=== PATIENT | female | born 1980 | race American Indian/Alaskan Native ===

== ENCOUNTER 2019-07-03 14:15 | Emergency (ER) | payer SELFPAY ==
--- NOTE | 2019-07-03 16:48 | Event Note ---
ED Screening Note Date of service: 07/03/19 Time: 16:44 ED Screening Note: This is a 39 y.o. F. that presents to the ER with right sided abdominal pain and chest discomfort for 2 days. Reports similar symptoms last week and seen at [facility]. Patient states she diagnosed with food poisoning. She was prescribed Maalox and zofran which she is taking with no change in symptoms. This initial assessment/diagnostic orders/clinical plan/treatment(s) is/are subject to change based on patients health status, clinical progression and re- assessment by fellow clinical providers in the ED. Further treatment and workup at subsequent clinical providers discretion. Patient/guardian urged not to elope from the ED as their condition may be serious if not clinically assessed and managed. Initial orders include: Labs and CT of abdomen
[2019-07-03 18:07] LABS: Basophils # (Auto) 0.1 K/mm3 (0.0-0.1); Eosinophils # (Auto) 0.2 K/mm3 (0.0-0.4); Eosinophils % (Auto) 1.8 % (0.0-4.3); Hematocrit 37.3 % (30.3-42.9); Hemoglobin 12.1 gm/dl (10.1-14.3); Lymphocytes # (Auto) 2.1 K/mm3 (1.2-5.4); Lymphocytes % (Auto) 24.4 % (13.4-35.0); Mean Corpuscular HGB Conc 33 % (30-34); Mean Corpuscular Volume 88 fl (79-97); Monocytes # (Auto) 0.9 K/mm3 (0.0-0.8); Platelet Count 351 K/mm3 (140-440); Red Blood Count 4.26 M/mm3 (3.65-5.03)
[2019-07-03 18:33] LABS: Bilirubin,Urine NEG (Negative); Color,Urine Yellow (Yellow); Mucus,Urine FEW /HPF; Protein,Urine <15 mg/dL mg/dL (Negative); Urobilinogen,Urine < 2.0 mg/dL (<2.0)
[2019-07-03 18:36] LABS: Blood,Urine MOD (Negative)
[2019-07-03 18:36] LABS: Alanine Aminotransferase 12 units/L (7-56); Albumin 4.1 g/dL (3.9-5); BUN/Creatinine Ratio 13; Blood Urea Nitrogen 8 mg/dL (7-17); Calcium 9.5 mg/dL (8.4-10.2); Hemolysis Index 10
[2019-07-03] MEDS ORDERED: ONDANSETRON 4 MG/2 ML INJ IV ONE (19:15)
[2019-07-03] MEDS ORDERED: SODIUM CHLORIDE 0.9% 1000 ML 1,000 ML IV ONE (19:15)
[2019-07-03] MEDS ORDERED: KETOROLAC 30 MG/1 ML INJ IV ONE (19:18)
--- NOTE | 2019-07-03 19:24 | Cat Scan Report ---
CT abdomen pelvis w con INDICATION / CLINICAL INFORMATION: right sided abdominal pain. TECHNIQUE: All CT scans at this location are performed using CT dose reduction for ALARA by means of automated e xposure control. COMPARISON: None available. FINDINGS: Lung bases are clear. ABDOMEN: Small hiatal hernia is present. The gallbladder is normal. A paramedian ventral hernia containing a nonobstructed loop of small bowel is identified. No other small bowel abnormalities. Pelvis: The appendix is normal. There is an enlarged fibroid uterus. No inflammatory changes or dependent fluid collections are seen in the pelvis. IMPRESSION: 1. Paramedian ventral hernia containing unobstructed small bowel. 2. Enlarged fibroid uterus. 3. Small hiatal hernia. Signer Name: David Mcallister MD Signed: 07/03/2019 7:19 PM Workstation Name: [id number]
--- NOTE | 2019-07-03 20:33 | Emergency Department Report ---
ED Abdominal Pain HPI - General Chief Complaint: Abdominal Pain Stated Complaint: CHEST PAIN/STOMACH PAIN Time Seen by Provider: 07/03/19 16:44 Source: patient Mode of arrival: Ambulatory Limitations: No Limitations - History of Present Illness Initial Comments: This is a 39 y.o. F. that presents to the ER with right sided abdominal pain for 3 weeks evaluated by [place] emergency department advised that she had gastritis. Patient has not follow-up with GI however. Patient now states that abdominal pain is lingering. There is no nausea vomiting pain is 4 over 5 burning aching . Patient is tolerating by mouth intake patient making normal amount of bowel movements and voiding without difficulty. There's no fevers no chills. MD Complaint: abdominal pain Onset/Timin -: week(s) Location: periumbilical Radiation: LLQ Migration to: no migration Severity: moderate Severity scale (0 -10): 5 Quality: cramping, aching Improves With: nothing Worsens With: nothing Associated Symptoms: denies: fever, chills, constipation, dysuria - Related Data LMP (females 10-50): last week Previous Rx's Medication Instructions Recorded Last Taken Type Dicyclomine [Bentyl] 10 mg PO QID PRN #30 capsule 07/03/19 Unknown Rx Famotidine [Pepcid] 20 mg PO BID #60 tablet 07/03/19 Unknown Rx Naproxen [EC-Naprosyn] 500 mg PO BID PRN #30 tablet. 07/03/19 Unknown Rx Ondansetron [Zofran Odt] 4 mg PO Q8HR #12 tab.rapdis 07/03/19 Unknown Rx Allergies Allergy/AdvReac Type Severity Reaction Status Date / Time No Known Allergies Allergy Unverified 07/03/19 16:49 ED Review of Systems ROS: Stated complaint: CHEST PAIN/STOMACH PAIN Other details as noted in HPI Constitutional: denies: chills, fever Eyes: denies: eye pain, eye discharge, vision change ENT: denies: ear pain, throat pain Respiratory: denies: cough, shortness of breath, wheezing Cardiovascular: denies: chest pain, palpitations Endocrine: no symptoms reported Gastrointestinal: as per HPI, abdominal pain. denies: nausea, vomiting, diarrhea, constipation, hematemesis, melena, hematochezia Genitourinary: denies: urgency, dysuria, frequency, hematuria, discharge Musculoskeletal: denies: back pain, joint swelling, arthralgia Skin: denies: rash, lesions Neurological: denies: headache, weakness, paresthesias Psychiatric: denies: anxiety, depression Hematological/Lymphatic: denies: easy bleeding, easy bruising ED Past Medical Hx - Social History Smoking Status: Never Smoker Substance Use Type: None - Medications Home Medications: Home Medications Medication Instructions Recorded Confirmed Last Taken Type Dicyclomine [Bentyl] 10 mg PO QID PRN #30 capsule 07/03/19 Unknown Rx Famotidine [Pepcid] 20 mg PO BID #60 tablet 07/03/19 Unknown Rx Naproxen [EC-Naprosyn] 500 mg PO BID PRN #30 tablet.dr 07/03/19 Unknown Rx Ondansetron [Zofran Odt] 4 mg PO Q8HR #12 tab.rapdis 07/03/19 Unknown Rx ED Physical Exam - General Limitations: No Limitations General appearance: alert, in no apparent distress - Head Head exam: Present: atraumatic, normocephalic - Eye Eye exam: Present: normal appearance, PERRL, EOMI Pupils: Present: normal accommodation - ENT ENT exam: Present: mucous membranes moist - Neck Neck exam: Present: normal inspection, full ROM. Absent: tenderness - Respiratory Respiratory exam: Present: normal lung sounds bilaterally. Absent: respiratory distress, wheezes, stridor, chest wall tenderness - Cardiovascular Cardiovascular Exam: Present: regular rate, normal rhythm, normal heart sounds. Absent: systolic murmur, diastolic murmur, rubs, gallop - GI/Abdominal GI/Abdominal exam: Present: soft, tenderness (periumbilical tenderness to deep palpation no bruit no thrill ), normal bowel sounds. Absent: distended, guarding, rebound, rigid, mass, bruit, hernia - Rectal Rectal exam: Present: deferred - Extremities Exam Extremities exam: Present: normal inspection, full ROM, normal capillary refill. Absent: tenderness - Back Exam Back exam: Present: normal inspection, full ROM. Absent: tenderness, CVA tenderness (R), CVA tenderness (L) - Neurological Exam Neurological exam: Present: alert, oriented X3, CN II-XII intact, normal gait - Psychiatric Psychiatric exam: Present: normal affect, normal mood - Skin Skin exam: Present: warm, dry, intact, normal color. Absent: rash ED Course Vital Signs 07/03/19 16:47 Temperature 98.3 F Pulse Rate 75 Respiratory 18 Rate Blood Pressure 136/74 O2 Sat by Pulse 100 Oximetry ED Medical Decision Making - Lab Data Result diagrams: 07/03/19 17:23 07/03/19 17:23 Labs 07/03/19 07/03/19 07/03/19 17:23 17:23 17:23 WBC 8.6 RBC 4.26 Hgb 12.1 Hct 37.3 MCV 88 MCH 29 MCHC 33 RDW 18.0 H Plt Count 351 Lymph % (Auto) 24.4 [place] % (Auto) 11.0 H Eos % (Auto) 1.8 Baso % (Auto) 1.0 Lymph # 2.1 [place] # 0.9 H Eos # 0.2 Baso # 0.1 Seg Neutrophils % 61.8 Seg Neutrophils # 5.3 Sodium 139 Potassium 4.1 Chloride 106.4 Carbon Dioxide 20 L Anion Gap 17 BUN 8 Creatinine 0.6 L Estimated GFR > 60 BUN/Creatinine Ratio 13 Glucose 102 H Calcium 9.5 Total Bilirubin 0.50 AST 15 ALT 12 Alkaline Phosphatase 62 Total Protein 7.6 Albumin 4.1 Albumin/Globulin Ratio 1.2 Lipase 18 HCG, Qual Negative Urine Color Urine Turbidity Urine pH Ur Specific [place] Urine Protein Urine Glucose (UA) Urine Ketones Urine Blood Urine Nitrite Urine Bilirubin Urine Urobilinogen Ur Leukocyte Esterase Urine WBC (Auto) Urine RBC (Auto) U Epithel Cells (Auto) Urine Mucus 07/03/19 18:00 WBC RBC Hgb Hct MCV MCH MCHC RDW Plt Count Lymph % (Auto) [place] % (Auto) Eos % (Auto) Baso % (Auto) Lymph # [place] # Eos # Baso # Seg Neutrophils % Seg Neutrophils # Sodium Potassium Chloride Carbon Dioxide Anion Gap BUN Creatinine Estimated GFR BUN/Creatinine Ratio Glucose Calcium Total Bilirubin AST ALT Alkaline Phosphatase Total Protein Albumin Albumin/Globulin Ratio Lipase HCG, Qual Urine Color Yellow Urine Turbidity Clear Urine pH 5.0 Ur Specific [place] 1.025 Urine Protein <15 mg/dl Urine Glucose (UA) Neg Urine Ketones Tr Urine Blood Mod Urine Nitrite Neg Urine Bilirubin Neg Urine Urobilinogen < 2.0 Ur Leukocyte Esterase Neg Urine WBC (Auto) 2.0 Urine RBC (Auto) 1.0 U Epithel Cells (Auto) 2.0 Urine Mucus Few - Radiology Data Radiology results: report reviewed, image reviewed Ordering Physician: GINETTE MAGDALENO Date of Service: 07/03/19 Procedure(s): CT abdomen pelvis w con Accession Number(s): [id number] cc: GINETTE MAGDALENO CT abdomen pelvis w con INDICATION / CLINICAL INFORMATION: right sided abdominal pain. TECHNIQUE: All CT scans at this location are performed using CT dose reduction for ALARA by means of automated exposure control. COMPARISON: None available. FINDINGS: Lung bases are clear. ABDOMEN: Small hiatal hernia is present. The gallbladder is normal. A paramedian ventral hernia containing a nonobstructed loop of small bowel is identified. No other small bowel abnormalities. Pelvis: The appendix is normal. There is an enlarged fibroid uterus. No inflammatory changes or dependent fluid collections are seen in the pelvis. IMPRESSION: 1. Paramedian ventral hernia containing unobstructed small bowel. 2. Enlarged fibroid uterus. 3. Small hiatal hernia. Signer Name: David Mcallister MD Signed: 07/03/2019 7:19 PM Workstation Name: [id number] Transcribed By: GA Dictated By: David Mcallister MD Electronically Authenticated By: David Mcallister MD Signed Date/Time: 07/03/191918 DD/ 14 TD/TT: - Medical Decision Making CT scan confirms paramedian hernia, nonobstructing. hiatal herniatal hernia. no obstruction. pt is tolerating po , there is n/v, no elevat ed wbc, plan DC to home follow up with general surgery follow-up GI NSAIDs, Bentyl ,Colace, hydrat e. return to emergency department should symptoms worsen or unable to pass bowels or intractable nausea and vomiting. Patient verbalized agreement and understanding of discharge plan patient received a home in stable condition at this time Critical care attestation.: If time is entered above; I have spent that time in minutes in the direct care of this critically ill patient, excluding procedure time. ED Disposition Clinical Impression: Hiatal hernia without gangrene and obstruction Disposition: DC-01 TO HOME OR SELFCARE Is pt being admited?: No Does the pt Need Aspirin: No Condition: Stable Instructions: Hiatal Hernia (ED) Additional Instructions: follow up with GI as directed, , follow up with genral surgery as directed. Prescriptions: Dicyclomine [Bentyl] 10 mg PO QID PRN #30 capsule PRN Reason: abdominal spasm Naproxen [EC-Naprosyn] 500 mg PO BID PRN #30 tablet.dr DANG Reason: pain Famotidine [Pepcid] 20 mg PO BID #60 tablet Ondansetron [Zofran Odt] 4 mg PO Q8HR #12 tab.rapdis Referrals: [facility] [Provider Group] - 3-5 Days ROMEO HEAD MD [Staff Physician] - 3-5 Days Forms: Work/School Release Form(ED) Time of Disposition: 20:42
[2019-07-03 20:50] VITALS: BP 132/80
== END 2019-07-03 21:02 | disposition home or self-care (01) ==
LOC: ED 14:15
DX: K44.9 Diaphragmatic hernia without obstruction or gangrene (principal)
CPT/HCPCS: 36415; 74177; 80053; 81001; 83690; 84703; 85025; 96374; 96375; 99284; J1885; J2405; J7030; Q9967